=== PATIENT | female | born 1975 | race Asian ===

== ENCOUNTER 2016-12-08 03:39 | Emergency (ER) | payer OTHER ==
--- NOTE | ~2016-12-08 | CR252 ---
[facility] A Service of [facility] RADIOLOGY TEXT RESULTS PATIENT: REGI JOHN LOCATION: [facility] : [id number] UNIT #: [id number] AGE: [address]: DARIO STEELE APRN SEX: F ORDER DR: [id number] [facility] [address] [place], [place] [address] [id number] E MR#: [id number] Acc #: [id number] NAME: REGI JOHN. : 1975 SEX: F STUDY DATE/TIME: 12/08/2016 3:00 UNIT: [facility] ROOM: STUDY DESCRIPTION: CR Tibia and Fibula 2 Views Lt Attending Physician: Dario Steele Aprn Ordering Physician: Dario Steele Aprn Primary Care Physician: No Primary Care Physician MEDICAL IMAGING REPORT This report is preliminary unless electronic signature is present EXAM Left lower leg. HISTORY Generalized pain in left lower leg for 3 days. FINDINGS 2 views of the left lower leg demonstrates mild arthritic change of left knee with developing marginal osteophytes, most pronounced in medial compartment. No fracture or dislocation. Bone mineralization appears normal. Soft tissues unremarkable. The visualized ankle joint unremarkable. IMPRESSION Mild arthritic changes, left knee. No acute abnormality, left lower leg. Dictated by... Carlos Tom M.D. THIS IS AN ELECTRONICALLY VERIFIED REPORT Carlos Tom M.D. at 12/08/2016 10:04 PM EMERY/bel TD: 12/08/2016 12:07 JOB #: [id number] MEDICAL IMAGING REPORT Page 1 of 1 COPY
== END 2016-12-08 04:30 | disposition home or self-care (01) ==
LOC: CED 03:39
DX: M25.572 Pain in left ankle and joints of left foot (principal); G89.29 Other chronic pain; F17.210 Nicotine dependence, cigarettes, uncomplicated
CPT/HCPCS: 29540; 73590; 99283

== ENCOUNTER 2016-12-22 00:11 | Emergency (ER) | payer OTHER | END 2016-12-27 10:39 | disposition left against medical advice (07) | LOC: CED 00:11 | DX: Z53.21 Procedure and treatment not carried out due to patient leaving prior to being seen by health care provider (principal) ==